=== PATIENT | female | born 1960 | race African-American/Black ===

== ENCOUNTER 2018-10-20 12:30 | Emergency (ER) | payer MEDICAID ==
[~2018-10-20] VITALS: Ht 165.1 cm; Wt 67.0 kg
[~2018-10-20 12:30] MED LIST: ACET1TAB14 GT; AMLO10TA80 PO; ASPI-1159 PO; ATOR20TA65 PO; GABA-531 PO; GEMF600T4 PO; IBUP-1636 PO; METO-539 PO; NAPR-681 PO; OMEP20CA10 PO; ZOLP10TA2 PO
[2018-10-20] MEDS ORDERED: IBUPROFEN 600MG TABLET PO STA (12:55)
[2018-10-20 15:16] LABS: BASOPHILS % 1.2 % (0.0-2.0); EOSINOPHILS % 0.3 % (0.0-5.0); HEMATOCRIT. 33.4 % (36.0-48.0); HEMOGLOBIN. 11.1 g/dL (12.0-16.0); LYMPHOCYTES % 29.3 % (20.0-50.0); MEAN CORPUSCULAR HEMOGLOBIN 31.3 pg (28.0-32.0); MEAN CORPUSCULAR VOLUME 94.1 fL (81.0-99.0); MEAN PLATELET VOLUME 7.8 fl (7.4-10.4); MONOCYTES % 5.8 % (2.0-8.0); NEUTROPHILS % 63.4 % (40.0-76.0); PLATELET 305 x1000/uL (130-400); RED BLOOD CELL COUNT 3.55 mill/uL (4.2-5.4)
[2018-10-20 15:20] LABS: CHLORIDE 93 mEq/L (98-107)
[2018-10-20] MEDS ORDERED: KETOROLAC 15MG/ML VIAL IV ONE (16:00)
[2018-10-20 16:48] VITALS: BP 148/78
== END 2018-10-20 16:36 | disposition home or self-care (01) ==
LOC: ER 12:47
DX: R10.12 Left upper quadrant pain (principal); R10.11 Right upper quadrant pain; R07.89 Other chest pain; F12.10 Cannabis abuse, uncomplicated; I10 Essential (primary) hypertension; Z79.82 Long term (current) use of aspirin; Z79.899 Other long term (current) drug therapy; Z88.8 Allergy status to other drugs, medicaments and biological substances
CPT/HCPCS: 36415; 71045; 76705; 99284; J1885

== ENCOUNTER 2018-12-19 10:54 | Emergency (ER) | payer MEDICAID ==
[~2018-12-19] VITALS: Ht 165.1 cm; Wt 52.0 kg
[2018-12-19] MEDS ORDERED: SODIUM CHLORIDE 0.9% 1,000 ML IV ONE (16:26)
[2018-12-19 16:28] LABS: BASOPHILS % 1.1 % (0.0-2.0); EOSINOPHILS % 0.3 % (0.0-5.0); HEMOGLOBIN. 9.5 g/dL (12.0-16.0); LYMPHOCYTES % 39.9 % (20.0-50.0); MEAN CORPUSCULAR HEMOGLOBIN 30.6 pg (28.0-32.0); MEAN CORPUSCULAR VOLUME 93.8 fL (81.0-99.0); MEAN PLATELET VOLUME 8.8 fl (7.4-10.4); NEUTROPHILS % 50.7 % (40.0-76.0); PLATELET 114 x1000/uL (130-400); RED BLOOD CELL COUNT 3.09 mill/uL (4.2-5.4); RED CELL DISTRIBUTION WIDTH 20.2 % (11.6-14.6)
[2018-12-19 16:29] LABS: CHLORIDE 103 mEq/L (98-107)
[2018-12-19] MEDS ORDERED: HYDROCODONE/ACETAMINOPHEN 5/325MG TABLET PO ONE ×2 (16:30→20:30)
[2018-12-19] MEDS ORDERED: ONDANSETRON 4MG ODT PO ONE (16:30)
[2018-12-19] MEDS ORDERED: KETOROLAC 30MG/ML VIAL IV ONE (16:30)
[2018-12-19 16:34] LABS: PARTIAL THROMBOPLASTIN TIME 25.4 sec (23.4-31.0); PROTHROMBIN TIME 10.2 sec (9.1-11.1)
[2018-12-19 17:34] LABS: *AMPHETAMINES SCREEN URINE NEGATIVE (NEGATIVE)
[2018-12-19 17:35] LABS: *BARBITURATES SCREEN URINE PRESUMTIVE POSITIVE (NEGATIVE); *BENZODIAZEPINES SCREEN URINE NEGATIVE (NEGATIVE); *COCAINE SCREEN URINE NEGATIVE (NEGATIVE); METHADONE URINE SCREEN NEGATIVE (NEGATIVE); OPIATES URINE SCREEN NEGATIVE (NEGATIVE); PHENCYCLIDINE URINE SCREEN NEGATIVE (NEGATIVE)
[2018-12-19 17:36] LABS: CANNABINOID URINE SCREEN PRESUMTIVE POSITIVE (NEGATIVE)
[2018-12-19 20:26] VITALS: BP 155/79
== END 2018-12-19 20:28 | disposition home or self-care (01) ==
LOC: ER 10:54
DX: R07.89 Other chest pain (principal); N64.4 Mastodynia; M54.12 Radiculopathy, cervical region; I10 Essential (primary) hypertension; F12.10 Cannabis abuse, uncomplicated; F17.200 Nicotine dependence, unspecified, uncomplicated; Z88.8 Allergy status to other drugs, medicaments and biological substances; Z88.6 Allergy status to analgesic agent; Z79.899 Other long term (current) drug therapy
CPT/HCPCS: 36415; 71045; 80053; 80305; 83690; 83880; 84484; 85025; 85610; 85730; 93005; 96374; 99284; J1885; J7030; Q0162

== ENCOUNTER 2020-12-03 08:55 | Inpatient (IN) | payer MEDICAID, OTHER ==
[~2020-12-03] VITALS: Ht 165.1 cm; Wt 58.1 kg
[~2020-12-03 08:55] MED LIST changes: -ASPI-1159 PO; +ASPI-1497 PO; -GABA-531 PO; +GABA-532 PO; -GEMF600T4 PO; +GEMF600T90 PO; -OMEP20CA10 PO; +OMEP20CA14 PO
[2020-12-03] MEDS ORDERED: MORPHINE SULFATE 4 MG/ML CPJ (NOT FOR IM USE) IV STA (09:05)
[2020-12-03 10:03] LABS: CHLORIDE 108 mEq/L (98-107)
[2020-12-03 10:10] LABS: CLARITY URINE CLEAR (CLEAR); COLOR URINE YELLOW (YELLOW); KETONES URINE NEGATIVE (NEGATIVE); LEUKOCYTE ESTERASE URINE TRACE (NEGATIVE); NITRITE URINE NEGATIVE (NEGATIVE); OCCULT BLOOD URINE NEGATIVE (NEGATIVE); PH URINE 6.5 (4.5-8.0); PROTEIN URINE NEGATIVE (NEGATIVE); SPECIFIC GRAVITY URINE 1.004 (1.005-1.030); UROBILINOGEN URINE 0.2 E.U./dL (0.2-1.0)
[2020-12-03 10:58] LABS: BASOPHILS % 0.3 % (0.0-2.0); EOSINOPHILS % 0.3 % (0.0-5.0); LYMPHOCYTES % 12.4 % (20.0-50.0); MEAN CORPUSCULAR HEMOGLOBIN 20.7 pg (28.0-32.0); MEAN CORPUSCULAR VOLUME 73.8 fL (81.0-99.0); MEAN PLATELET VOLUME 8.1 fl (7.4-10.4); MONOCYTES % 9.9 % (2.0-8.0); NEUTROPHILS % 77.1 % (40.0-76.0); PLATELET 192 x1000/uL (130-400); RED BLOOD CELL COUNT 2.58 mill/uL (4.2-5.4); RED CELL DISTRIBUTION WIDTH 23.2 % (11.6-14.6)
[2020-12-03 11:03] LABS: HEMOGLOBIN. 5.3 g/dL (12.0-16.0)
[2020-12-03 11:09] LABS: INR 1.3
[2020-12-03] MEDS ORDERED: DIPHENHYDRAMINE 50MG CAPSULE PO ONE (11:30)
[2020-12-03 11:32] LABS: PLATELET ESTIMATE NORMAL
[2020-12-03] MEDS ORDERED: MORPHINE SULFATE 4 MG/ML CPJ (NOT FOR IM USE) IV ONE (13:45)
[2020-12-03] MEDS ORDERED: ONDANSETRON HCL 4MG/2ML INJ IV PRN (17:15)
[2020-12-03] MEDS ORDERED: POTASSIUM CHLORIDE 20MEQ TABLET SR PO NR (17:15)
[2020-12-03] MEDS: FUROSEMIDE 40MG TABLET PO SCH (17:24)
[2020-12-03] MEDS ORDERED: DIPHENHYDRAMINE 50MG/ML VIAL IV ONE (17:45)
[2020-12-03 17:50] LABS: CARCINO EMBRYONIC ANTIGEN 4.2 ng/ml; FERRITIN 10 ng/mL (10-291)
[2020-12-03 18:02] LABS: HEPATITIS B SURFACE ANTIGEN NEGATIVE
[2020-12-03 18:31] LABS: HEPATITIS A AB IGM NEGATIVE (NEGATIVE)
[2020-12-03 19:00] LABS: VITAMIN B12 SERUM 1257 pg/mL (211-911)
[2020-12-03 21:22] VITALS: BP 128/74
[2020-12-03 21:38] LABS: TOTAL IRON BINDING CAPACITY 358 ug/dL (250-450)
[2020-12-03 21:42] VITALS: BP 128/74
[2020-12-03] MEDS ORDERED: LORAZEPAM 1MG TABLET PO PRN (22:30)
[2020-12-03 23:07] LABS: HEMATOCRIT 23.1 % (36.0-48.0)
[2020-12-03] MEDS: DIPHENHYDRAMINE 25MG CAPSULE PO PRN (23:32)
[2020-12-03] MEDS: MORPHINE SULFATE 2 MG/ML CPJ (NOT FOR IM USE) IV PRN (23:33)
[2020-12-03] MEDS: THIAMINE HCL 100MG TABLET PO SCH (23:49)
[2020-12-04] VITALS (7 sets, daily range): BP systolic 111–147; BP diastolic 46–78
[2020-12-04] MEDS: MORPHINE SULFATE 2 MG/ML CPJ (NOT FOR IM USE) IV PRN (03:46)
[2020-12-04] MEDS: DIPHENHYDRAMINE 25MG CAPSULE PO PRN (05:33)
[2020-12-04 07:01] LABS: BASOPHILS % 0.3 % (0.0-2.0); EOSINOPHILS % 0.4 % (0.0-5.0); HEMATOCRIT. 31.1 % (36.0-48.0); HEMOGLOBIN. 9.5 g/dL (12.0-16.0); LYMPHOCYTES % 15.4 % (20.0-50.0); MEAN CORPUSCULAR VOLUME 79.1 fL (81.0-99.0); MONOCYTES % 8.1 % (2.0-8.0); NEUTROPHILS % 75.8 % (40.0-76.0); PLATELET 179 x1000/uL (130-400); RED BLOOD CELL COUNT 3.94 mill/uL (4.2-5.4); RED CELL DISTRIBUTION WIDTH 21.6 % (11.6-14.6)
[2020-12-04 07:20] LABS: CHLORIDE 101 mEq/L (98-107)
[2020-12-04] MEDS ORDERED: LIDOCAINE HCL 1% 20ML VIAL (Pyxis) INJ ONE (08:05)
[2020-12-04] MEDS ORDERED: SODIUM BICARBONATE 4% (2.4MEQ) 5ML VIAL IV ONE (08:05)
[2020-12-04] MEDS ORDERED: GABAPENTIN 300MG CAPSULE PO SCH (09:00)
[2020-12-04] MEDS ORDERED: PANTOPRAZOLE SODIUM 40 MG/VIAL IV SCH (09:00)
[2020-12-04 09:18] LABS: CANNABINOID URINE SCREEN PRESUMTIVE POSITIVE (NEGATIVE)
[2020-12-04 09:19] LABS: *AMPHETAMINES SCREEN URINE NEGATIVE (NEGATIVE); *BARBITURATES SCREEN URINE NEGATIVE (NEGATIVE); *BENZODIAZEPINES SCREEN URINE NEGATIVE (NEGATIVE); *COCAINE SCREEN URINE NEGATIVE (NEGATIVE); METHADONE URINE SCREEN NEGATIVE (NEGATIVE); OPIATES URINE SCREEN NEGATIVE (NEGATIVE); PHENCYCLIDINE URINE SCREEN NEGATIVE (NEGATIVE)
[2020-12-04] MEDS: FUROSEMIDE 40MG TABLET PO SCH (10:07)
[2020-12-04] MEDS: THIAMINE HCL 100MG TABLET PO SCH (10:07)
[2020-12-04] MEDS ORDERED: POTASSIUM CHLORIDE 20MEQ TABLET SR PO NR (13:45)
[2020-12-04] MEDS ORDERED: CEFTRIAXONE 1 G PREMIX 50 ML IV SCH (14:15)
[2020-12-04] MEDS ORDERED: IRON SUCROSE COMPLEX 100 MG/5 ML ML IV SCH (14:30)
[2020-12-04] MEDS ORDERED: CEFTRIAXONE 1,000 MG in DEXTROSE 5% WATER 50 ML IV SCH (15:30)
[2020-12-04 15:50] LABS: HEMATOCRIT 31.3 % (36.0-48.0); HEMOGLOBIN 9.7 g/dL (12.0-16.0)
[2020-12-04] MEDS ORDERED: FURO40TA5 PO (16:42)
[2020-12-04] MEDS ORDERED: SPIR50TA5 MT (16:42)
[2020-12-04] MEDS ORDERED: THIA100T72 PO (16:42)
[2020-12-04] MEDS ORDERED: FERR325T23 MT (16:42)
[2020-12-04] MEDS ORDERED: DOCU250C14 MT (16:42)
== END 2020-12-04 18:00 | disposition home or self-care (01) | DRG 280 ==
LOC: ER 09:01 → 8WST 13:45 → EDBEDREQTM 13:46 → EDBEDREQ 13:46 → ENRESERV 20:03
PROVIDERS: ADMIT Internal Medicine; ATTEND Internal Medicine
PROC: 0W9G3ZX Drainage of Peritoneal Cavity, Percutaneous Approach, Diagnostic (ICD-10-PCS; principal; 2020-12-04)
PROC: 30233N1 Transfusion of Nonautologous Red Blood Cells into Peripheral Vein, Percutaneous Approach (ICD-10-PCS; 2020-12-04)
DX: K70.31 Alcoholic cirrhosis of liver with ascites (principal); D50.9 Iron deficiency anemia, unspecified; K52.9 Noninfective gastroenteritis and colitis, unspecified; I10 Essential (primary) hypertension; M79.89 Other specified soft tissue disorders; F17.210 Nicotine dependence, cigarettes, uncomplicated; F10.10 Alcohol abuse, uncomplicated; Y90.9 Presence of alcohol in blood, level not specified; E87.6 Hypokalemia; E43 Unspecified severe protein-calorie malnutrition; Z20.822 Contact with and (suspected) exposure to COVID-19; F12.90 Cannabis use, unspecified, uncomplicated; K76.0 Fatty (change of) liver, not elsewhere classified; Z79.1 Long term (current) use of non-steroidal anti-inflammatories (NSAID); Z79.899 Other long term (current) drug therapy; Z68.21 Body mass index [BMI] 21.0-21.9, adult; Z71.41 Alcohol abuse counseling and surveillance of alcoholic; Z71.6 Tobacco abuse counseling
CPT/HCPCS: 36415; 49083; 74176; 76700; 80048; 80053; 80305; 81003; 82040; 82105; 82140; 82270; 82378; 82607; 82728; 82746; 83540; 83550; 85014; 85018; 85025; 86301; 86705; 86709; 86803; 86850; 86870; 86900; 86920; 87015; 87045; 87340; 87426; 87427; 87449; 87493; 89055; 93005; 99291; C1893; C9113; J0696; J1200; J2270; J2405; J3490; J7060; P9016; Q0163

== ENCOUNTER 2021-08-22 16:08 | Emergency (ER) | payer OTHER ==
[~2021-08-22] VITALS: Ht 165.1 cm; Wt 55.0 kg
[~2021-08-22 16:08] MED LIST changes: -ASPI-1497 PO; -ATOR20TA65 PO; +DOCU250C14 MT; +FERR325T23 MT; +FURO40TA5 PO; -IBUP-1636 PO; -METO-539 PO; -NAPR-681 PO; -OMEP20CA14 PO; +SPIR50TA5 MT; +THIA100T72 PO
[2021-08-22 16:19] VITALS: BP 146/58
[2021-08-22] MEDS ORDERED: ACETAMINOPHEN 325MG TABLET PO ONE (16:45)
== END 2021-08-22 17:36 | disposition home or self-care (01) ==
LOC: ER 16:08
DX: M25.561 Pain in right knee (principal); M25.562 Pain in left knee; G89.11 Acute pain due to trauma; W18.09XA Striking against other object with subsequent fall, initial encounter; Y93.01 Activity, walking, marching and hiking; Y92.59 Other trade areas as the place of occurrence of the external cause
CPT/HCPCS: 73560; 99283

== ENCOUNTER 2021-10-04 08:59 | Emergency (ER) | payer OTHER ==
[~2021-10-04] VITALS: Ht 165.1 cm; Wt 55.0 kg
[2021-10-04] MEDS ORDERED: IBUPROFEN 600MG TABLET PO STA (11:24)
[2021-10-04] MEDS ORDERED: IBUP-2029 PO (12:24)
[2021-10-04 12:45] VITALS: BP 135/75
== END 2021-10-04 12:41 | disposition home or self-care (01) ==
LOC: ER 08:59
DX: S63.695A Other sprain of left ring finger, initial encounter (principal); X58.XXXA Exposure to other specified factors, initial encounter; Y93.89 Activity, other specified; Y92.89 Other specified places as the place of occurrence of the external cause; Y99.8 Other external cause status; I10 Essential (primary) hypertension; F10.229 Alcohol dependence with intoxication, unspecified; Y90.0 Blood alcohol level of less than 20 mg/100 ml; F12.10 Cannabis abuse, uncomplicated; Z79.899 Other long term (current) drug therapy
CPT/HCPCS: 73130; 99283

== ENCOUNTER 2022-05-23 03:50 | Emergency (ER) | payer MEDICAID, OTHER ==
[~2022-05-23] VITALS: Ht 167.6 cm; Wt 65.0 kg
[~2022-05-23 03:50] MED LIST changes: +IBUP-2029 PO
[2022-05-23 03:52] VITALS: BP 120/73
[2022-05-23] MEDS ORDERED: KETOROLAC 15MG/ML VIAL IV ONE (04:00)
[2022-05-23] MEDS ORDERED: SODIUM CHLORIDE 0.9% 1,000 ML IV ONE (04:00)
[2022-05-23 05:02] LABS: BASOPHILS % 0.4 % (0.0-2.0); EOSINOPHILS % 0.6 % (0.0-5.0); HEMATOCRIT. 36.8 % (36.0-48.0); LYMPHOCYTES % 35.9 % (20.0-50.0); MEAN CORPUSCULAR VOLUME 90.2 fL (81.0-99.0); MEAN PLATELET VOLUME 8.7 fl (7.4-10.4); MONOCYTES % 8.9 % (2.0-8.0); NEUTROPHILS % 54.2 % (40.0-76.0); PLATELET 151 x1000/uL (130-400); RED BLOOD CELL COUNT 4.08 mill/uL (4.2-5.4); RED CELL DISTRIBUTION WIDTH 14.7 % (11.6-14.6)
[2022-05-23 05:28] LABS: CHLORIDE 91 mEq/L (98-107)
[2022-05-23 05:37] LABS: CREATINE KINASE 397 IU/L (26-192)
[2022-05-23 07:21] LABS: HEMOGLOBIN. 12.8 g/dL (12.0-16.0)
[2022-05-23 07:22] LABS: MEAN CORPUSCULAR HEMOGLOBIN 31.4 pg (28.0-32.0)
== END 2022-05-23 07:54 | disposition home or self-care (01) ==
LOC: ER 04:02
DX: M79.604 Pain in right leg (principal); M79.605 Pain in left leg; F10.229 Alcohol dependence with intoxication, unspecified; Z85.6 Personal history of leukemia; I10 Essential (primary) hypertension; Z87.891 Personal history of nicotine dependence; F12.10 Cannabis abuse, uncomplicated; Z79.899 Other long term (current) drug therapy
CPT/HCPCS: 36415; 80053; 82550; 85025; 96361; 96374; 99283; J1885; J7030

== ENCOUNTER 2022-08-26 13:41 | Emergency (ER) | payer MEDICAID, OTHER ==
[~2022-08-26] VITALS: Ht 165.1 cm; Wt 58.0 kg
[2022-08-26 13:53] VITALS: BP 116/62
[2022-08-26 18:11] LABS: BASOPHILS % 0.5 % (0.0-2.0); EOSINOPHILS % 0.8 % (0.0-5.0); HEMOGLOBIN. 12.6 g/dL (12.0-16.0); LYMPHOCYTES % 37.8 % (20.0-50.0); MEAN CORPUSCULAR HEMOGLOBIN 32.4 pg (28.0-32.0); MEAN CORPUSCULAR VOLUME 97.4 fL (81.0-99.0); MEAN PLATELET VOLUME 9.3 fl (7.4-10.4); MONOCYTES % 9.7 % (2.0-8.0); NEUTROPHILS % 51.2 % (40.0-76.0); PLATELET 135 x1000/uL (130-400); RED CELL DISTRIBUTION WIDTH 14.7 % (11.6-14.6)
[2022-08-26 18:17] LABS: CHLORIDE 106 mEq/L (98-107)
[2022-08-26 18:31] LABS: CLARITY URINE CLEAR (CLEAR); COLOR URINE YELLOW (YELLOW); KETONES URINE NEGATIVE (NEGATIVE); LEUKOCYTE ESTERASE URINE NEGATIVE (NEGATIVE); NITRITE URINE NEGATIVE (NEGATIVE); OCCULT BLOOD URINE NEGATIVE (NEGATIVE); PH URINE 6.5 (4.5-8.0); PROTEIN URINE NEGATIVE (NEGATIVE); SPECIFIC GRAVITY URINE 1.016 (1.005-1.030)
== END 2022-08-26 20:10 | disposition home or self-care (01) ==
LOC: ER 13:41
DX: N93.9 Abnormal uterine and vaginal bleeding, unspecified (principal); R22.0 Localized swelling, mass and lump, head; I10 Essential (primary) hypertension; F10.20 Alcohol dependence, uncomplicated; K70.30 Alcoholic cirrhosis of liver without ascites; Y90.9 Presence of alcohol in blood, level not specified; Z85.3 Personal history of malignant neoplasm of breast; Z98.890 Other specified postprocedural states
CPT/HCPCS: 36415; 80053; 81003; 85025; 99283